=== PATIENT | female | born 2005 | race Caucasian/White ===

== ENCOUNTER 2025-09-23 15:07 | Observation (INO) | payer OTHER, SELFPAY ==
[2025-09-23] VITALS (63 sets, daily range): BP systolic 113–139; BP diastolic 58–88; PULSE 98–129; RESP 18; TEMP 37.2; O2SAT 96–100; BMI 27.5
--- NOTE | 2025-09-23 15:56 | OBADM ---
This patient, Dora Lamas, admitted to the OB room 116 for observation. Patient/family oriented to hospital policies and general routines including ID bracelet, bed and alarms, visiting hours, pain management, procedures, bathroom and other care routines, personal items, smoking policy, room service/diet, and visiting hours. Patient/Family are encouraged to report perceived risks to care and to ask questions if they do not understand what they are told or what they should do.
[2025-09-23 15:58] LABS: Add Urine Microscopic? YES; Appearance Urine Cloudy (Clear); Glucose Urine UA Negative (Negative); Leukocyte Esterase Ur Trace LEU/UL (Negative); Nitrate Urine Negative (Negative); Non Pathogenic Casts 0-2; Specific Grav Ur 1.018 (1.001-1.035)
[2025-09-23] MEDS: TERBUTALINE SULFATE 1 MG/ML VIAL 0.25 MG SUB-Q ×2 (16:25→19:31)
[2025-09-23 18:49] LABS: Fetal Fibronectin Negative
--- NOTE | 2025-09-24 12:58 | PM.OBTRLD ---
OB - Triage/Final Diagnosis Visit Information Reason for evaluation: threatened labor Comments/Additional reasons for admission: I have assessed the risk for this patient, Dora Lamas, and determined that she would benefit from observation care. Evaluation Laboratory results: Laboratory Tests 09/23/25 09/23/25 15:38 16:54 Urine Color Yellow Urine Appearance Cloudy H Urine pH 6.5 Ur Specific [place] 1.018 Urine Protein Negative Urine Glucose (UA) Negative Urine Ketones Negative Ur Blood (Man) Negative Urine Nitrate Negative Urine Bilirubin Negative Urine Urobilinogen 0.2 Leukocyte Esterase Rfl Trace H Urine RBC 0-2 Urine WBC 0-5 Ur Squamous Epith Cells None seen Urine Bacteria Rare Urine Casts 0-2 Fibronectin Negative Vital signs: Vital Signs - 24 hr 09/23/25 15:41 09/23/25 16:00 09/23/25 16:00 Temperature 98.9 F Pulse Rate 101 H Respiratory Rate 18 Blood Pressure 132/86 Pulse Oximetry Oxygen Delivery Room Air 09/23/25 16:00 09/23/25 16:19 09/23/25 16:24 Temperature Pulse Rate 110 H 118 H Respiratory Rate Blood Pressure 121/67 131/88 Pulse Oximetry 100 100 Oxygen Delivery 09/23/25 16:29 09/23/25 16:30 09/23/25 16:34 Temperature Pulse Rate 113 H Respiratory Rate Blood Pressure 139/82 Pulse Oximetry 99 99 Oxygen Delivery 09/23/25 16:39 09/23/25 16:44 09/23/25 16:49 Temperature Pulse Rate Respiratory Rate Blood Pressure Pulse Oximetry 96 96 98 Oxygen Delivery 09/23/25 16:54 09/23/25 16:59 09/23/25 17:00 Temperature Pulse Rate 120 H Respiratory Rate Blood Pressure 131/77 Pulse Oximetry 97 98 Oxygen Delivery 09/23/25 17:04 09/23/25 17:09 09/23/25 17:14 Temperature Pulse Rate Respiratory Rate Blood Pressure Pulse Oximetry 100 100 100 Oxygen Delivery 09/23/25 17:19 09/23/25 17:24 09/23/25 17:29 Temperature Pulse Rate Respiratory Rate Blood Pressure Pulse Oximetry 99 100 100 Oxygen Delivery 09/23/25 17:30 09/23/25 17:31 09/23/25 17:36 Temperature Pulse Rate 109 H Respiratory Rate Blood Pressure 127/63 Pulse Oximetry 100 100 Oxygen Delivery 09/23/25 17:45 09/23/25 17:51 09/23/25 17:53 Temperature Pulse Rate Respiratory Rate Blood Pressure Pulse Oximetry 100 100 100 Oxygen Delivery 09/23/25 18:00 09/23/25 18:08 09/23/25 18:13 Temperature Pulse Rate 101 H Respiratory Rate Blood Pressure 124/71 Pulse Oximetry 98 99 Oxygen Delivery 09/23/25 18:18 09/23/25 18:23 09/23/25 18:28 Temperature Pulse Rate Respiratory Rate Blood Pressure Pulse Oximetry 99 100 100 Oxygen Delivery 09/23/25 18:30 09/23/25 18:33 09/23/25 18:38 Temperature Pulse Rate 103 H Respiratory Rate Blood Pressure 122/71 Pulse Oximetry 99 99 Oxygen Delivery 09/23/25 18:43 09/23/25 18:48 09/23/25 18:54 Temperature Pulse Rate Respiratory Rate Blood Pressure Pulse Oximetry 99 99 99 Oxygen Delivery 09/23/25 18:59 09/23/25 19:00 09/23/25 19:04 Temperature Pulse Rate 101 H Respiratory Rate Blood Pressure 117/62 Pulse Oximetry 99 99 Oxygen Delivery 09/23/25 19:09 09/23/25 19:14 09/23/25 19:19 Temperature Pulse Rate Respiratory Rate Blood Pressure Pulse Oximetry 98 98 99 Oxygen Delivery 09/23/25 19:22 09/23/25 19:27 09/23/25 19:30 Temperature Pulse Rate 101 H Respiratory Rate Blood Pressure 113/69 Pulse Oximetry 99 99 Oxygen Delivery 09/23/25 19:32 09/23/25 19:37 09/23/25 19:42 Temperature Pulse Rate Respiratory Rate Blood Pressure Pulse Oximetry 100 99 99 Oxygen Delivery 09/23/25 19:44 09/23/25 19:49 09/23/25 19:54 Temperature Pulse Rate Respiratory Rate Blood Pressure Pulse Oximetry 99 99 99 Oxygen Delivery 09/23/25 19:59 09/23/25 20:00 09/23/25 20:04 Temperature Pulse Rate 110 H Respiratory Rate Blood Pressure 116/60 Pulse Oximetry 99 98 Oxygen Delivery 09/23/25 20:09 09/23/25 20:13 09/23/25 20:16 Temperature Pulse Rate Respiratory Rate Blood Pressure Pulse Oximetry 98 99 100 Oxygen Delivery 09/23/25 20:21 09/23/25 20:24 09/23/25 20:29 Temperature Pulse Rate Respiratory Rate Blood Pressure Pulse Oximetry 100 100 99 Oxygen Delivery 09/23/25 20:30 09/23/25 20:34 Temperature Pulse Rate 108 H Respiratory Rate Blood Pressure 117/58 L Pulse Oximetry 99 Oxygen Delivery
== END 2025-09-23 20:53 | disposition home or self-care (01) ==
PROVIDERS: Admitting Provider Obstetrics & Gynecology; Visit Provider Obstetrics & Gynecology
DX: O47.03 False labor before 37 completed weeks of gestation, third trimester (principal); Z3A.30 30 weeks gestation of pregnancy
CPT/HCPCS: 81001; 82731; 96372; G0378; G0379; J3105